=== PATIENT | female | born 1955 ===

== ENCOUNTER → 2018-08-07 | Day surgery (SDC) | payer OTHER ==
[~2018-08-07] MED LIST: ATORVASTATIN CA20 MG PO; GABAPENTIN400 MG PO; LEVO-T25 MCG PO; LISINOPRIL5 MG PO; LYRICA300 MG PO; PROTONIX20 MG PO; ZANTAC300 MG PO
== END | disposition home or self-care (01) ==
LOC: CIR.AMB 08:35
DX: M47.26 Other spondylosis with radiculopathy, lumbar region (principal); M51.16 Intervertebral disc disorders with radiculopathy, lumbar region

== ENCOUNTER 2025-08-15 17:34 | Emergency (ER) | payer OTHER ==
[~2025-08-15] VITALS: Ht 157.5 cm; Wt 63.5 kg
[2025-08-15] MEDS ORDERED: KETOROLAC TROMETHAMINE 30 MG VIAL IV ONE (19:00)
[2025-08-15] MEDS ORDERED: ONDANSETRON HCL 4 MG in 0.9 % SODIUM CHLORIDE 50 ML IV ONE (19:00)
[2025-08-15] MEDS ORDERED: 0.9 % SODIUM CHLORIDE 1,000 ML IV SCH (19:00)
[2025-08-15] MEDS ORDERED: FAMOtidine 10 MG/ML (4ML VIAL) IV PUSH ONE (19:00)
[2025-08-15] MEDS ORDERED: MORPHINE SULFATE 4 MG/ML CARTRIDGE IV ONE ×2 (19:00→23:30)
[2025-08-15] MEDS ORDERED: ONDANSETRON HCL 2 MG/ML VIAL ONE (19:20)
[2025-08-15] MEDS ORDERED: KETOROLAC TROMETHAMINE 30 MG VIAL ONE (19:20)
[2025-08-15] MEDS ORDERED: FAMOTIDINE/PF 20 MG/2 ML VIAL ONE (19:21)
[2025-08-15 20:10] LABS: BASO % 0.7 % (0.1-1.2); EOS # 0.14 (0.04-0.54); EOS % 2.0 % (0.7-7.0); LYMPH # 1.59 (1.18-3.74); LYMPH % 23.2 % (19.3-53.1); MEAN PLATELET VOLUME 11.10 fl (9.4-12.4); MONO # 0.47 (0.24-0.82); MONO % 6.9 % (4.7-12.5); NEUT # 4.59 (1.56-6.13); NEUT % 66.9 % (34.0-71.1); RED CELL DISTRIBUTION WIDTH 12.9 % (11.6-14.4)
[2025-08-15 20:15] LABS: ERYTHROCYTE SEDIMENTATION RATE 21 mm/hr (0-30)
[2025-08-15 20:22] LABS: INR 1.04
[2025-08-15 20:29] LABS: ALT/SGPT 30.0 U/L (12-78); AST/SGOT 20.0 U/L (15-37); BILIRUBIN TOTAL 0.51 mg/dL (0.3-1.2); BUN CREA RATIO 13.0 (7.0-25.0); CREATININE SERUM 1.06 mg/dL (0.55-1.02); GFR 51.1; GLOBULINA 3.0 G/DL (2.4-3.5); GLUCOSE FASTING 105.0 mg/dL (65-100); OSMOLALITY SERUM 286.0 MOSM/KG (275-295)
[2025-08-15 21:48] LABS: URINE APPEARANCE Clear; URINE BILIRRUBIN Negative (NEGATIVE); URINE BLOOD Negative; URINE COLOR Yellow; URINE GLUCOSE Negative (NEGATIVE); URINE KETONE 15 (NEGATIVE); URINE LEUKOCYTE Moderate; URINE NITRATE Negative; URINE PROTEIN Trace (NEGATIVE); URINE UROBILINOGEN 0.2 E.U./dl
[2025-08-15 21:51] LABS: URINE BACTERIA 368.2 uL (0.0-1933); URINE EPITHELIAL CELLS 18.1 uL (0.0-38.8); URINE RBC 7.4 uL (0.0-20.8); URINE WBC 75.4 uL (0.0-23.2)
[2025-08-15 21:57] LABS: URINE CAST 0.29 uL (0.0-1.40)
[2025-08-16] MEDS ORDERED: CIPRO500 MG PO (01:03)
[2025-08-16] MEDS ORDERED: DICY20TA PO (01:03)
[2025-08-16] MEDS ORDERED: TRAMADOL HCL E100 MG PO (01:03)
[2025-08-16] MEDS ORDERED: PYRIDIUM DS200 MG PO (01:03)
== END 2025-08-16 01:33 | disposition home or self-care (01) ==
LOC: ER 17:34
PROVIDERS: General Practice
DX: R10.31 Right lower quadrant pain (principal); R10.9 Unspecified abdominal pain; Z88.2 Allergy status to sulfonamides
CPT/HCPCS: 36415; 74177; 93005; 96365; 96366; 99284; J1885; J2270 ×2; J2405; J3490; J7030; Q9965